=== PATIENT | male | born 1995 | race African-American/Black ===

== ENCOUNTER 2018-01-27 22:54 | Emergency (ER) | payer OTHER ==
[~2018-01-27] VITALS: Ht 172.7 cm; Wt 94.6 kg
[~2018-01-27 22:54] MED LIST: MOTRIN800 MG PO; NOHOMEMEDS
[2018-01-28] MEDS ORDERED: AMOXICILLIN500 MG PO (04:33)
[2018-01-28 05:20] VITALS: BP 150/88
== END 2018-01-28 05:31 | disposition home or self-care (01) ==
LOC: EME 22:54
PROVIDERS: Emergency Medicine
DX: J02.9 Acute pharyngitis, unspecified (principal); F17.200 Nicotine dependence, unspecified, uncomplicated
CPT/HCPCS: 87081; 87502; 87651 90; 99281; 99284; J1100